=== PATIENT | female | born 1995 | race Caucasian/White ===

== ENCOUNTER 2021-10-18 01:58 | Inpatient (IN) ==
[~2021-10-18 01:58] MED LIST: Azithromycin 500 MG in 0.9 % Sodium Chloride 250 ML IVPB PRN; Famotidine 20 MG/2 ML VIAL IVP PRN; Metoclopramide 10 MG/2 ML VIAL IVP PRN; Naloxone 0.4 MG/ML INJ IVP PRN; Ondansetron 4 MG/2 ML VIAL IVP PRN
[2021-10-18] MEDS ORDERED: Ringers Solution, Lactated 1,000 ML IVC SCH (02:00)
[2021-10-18 02:53] LABS: Basophils # 0.1 K/mcL (0.0-0.2); Basophils % 0.7 %; Eosinophils # 0.1 K/mcL (0.0-0.6); Eosinophils % 0.9 %; Hematocrit 27.8 % (35.3-44.9); Hemoglobin 8.4 g/dL (11.5-15.4); Immature Granulocytes % 1.7 % (0-4); Lymphocytes # 1.5 K/mcL (0.6-4.6); Lymphocytes % 15.2 %; Mean Corpuscular HGB Conc 30.2 g/dL (31.6-35.5); Mean Corpuscular Hemoglobin 23.1 pg (28.0-33.3); Mean Corpuscular Volume 76.6 fL (83.0-100.0); Mean Platelet Volume 10.6 fL (9.4-12.4); Monocytes # 0.7 K/mcL (0.0-1.3); Monocytes % 6.9 %; Neutrophils # 7.3 K/mcL (1.6-8.9); Platelet Count 293 K/mcL (140-400); Red Blood Count 3.63 M/mcL (3.82-4.97); Red Cell Distribution Width 18.1 % (11.5-14.5); Segmented Neutrophils % 74.6 %; White Blood Count 9.8 K/mcL (4.3-11.1)
[2021-10-18 03:03] LABS: Amphetamine Screen,Urine Negative ng/mL (Cutoff=1000); Barbiturate Screen,Urine Negative ng/mL (Cutoff=200); Benzodiazepines Screen,Urine Negative ng/mL (Cutoff=200); Cannabinoid Screen,Urine Negative ng/mL (Cutoff = 50); Cocaine Screen,Urine Negative ng/mL (Cutoff= 300); Opiate Screen,Urine Negative ng/mL (Cutoff=300); Phencyclidine Screen,Urine Negative ng/mL (Cutoff=25)
[2021-10-18] MEDS ORDERED: *HR* Nalbuphine 10 MG/ML AMPUL ONE (04:54)
[2021-10-18] MEDS ORDERED: *HR* Nalbuphine 10 MG/ML AMPUL IV PRN (05:04)
[2021-10-18] MEDS ORDERED: EPHEDrine 50 MG/ML VIAL IVP PRN (08:43)
[2021-10-18] MEDS ORDERED: Epidural Premix (fent/bupiv) 110 ML EP SCH (08:45)
[2021-10-18] MEDS ORDERED: Oxytocin 30 UNIT/503 ML BAG IVC ONE (10:23)
[2021-10-18] MEDS ORDERED: Ibuprofen 600 MG TABLET PO ONE (11:53)
[2021-10-18] MEDS ORDERED: Oxytocin 30 UNIT/503 ML BAG IVC SCH (14:25)
[2021-10-18] MEDS ORDERED: Measles/Mumps/Rubella Vacc 0.5 ML VIAL SQ PRN (14:25)
[2021-10-18] MEDS ORDERED: Ondansetron ODT 4 MG TAB.RAPDIS SL PRN (14:25)
[2021-10-18] MEDS ORDERED: *HR* OxyCODONE Immed Rel 5 MG TABLET PO PRN (14:25)
[2021-10-18] MEDS ORDERED: Benzocaine/Menthol 56 GM AEROSOL SPRAY TP PRN (14:25)
[2021-10-18] MEDS ORDERED: Lanolin 7 G OINT...G. TP PRN (14:25)
[2021-10-18] MEDS: Ibuprofen 600 MG TABLET PO SCH ×2 (15:26→21:43)
[2021-10-18] MEDS: Acetaminophen 325 MG TABLET PO SCH ×2 (15:27→21:42)
[2021-10-19] MEDS: Acetaminophen 325 MG TABLET PO SCH (03:26)
[2021-10-19] MEDS: Ibuprofen 600 MG TABLET PO SCH (03:26)
[2021-10-19 03:51] LABS: Basophils % 0.2 %; Eosinophils % 0.2 %; Hematocrit 22.1 % (35.3-44.9); Immature Granulocytes % 1.9 % (0-4); Lymphocytes # 1.9 K/mcL (0.6-4.6); Lymphocytes % 12.5 %; Mean Corpuscular HGB Conc 29.9 g/dL (31.6-35.5); Mean Corpuscular Hemoglobin 23.1 pg (28.0-33.3); Mean Corpuscular Volume 77.3 fL (83.0-100.0); Mean Platelet Volume 10.4 fL (9.4-12.4); Monocytes # 0.8 K/mcL (0.0-1.3); Monocytes % 4.9 %; Neutrophils # 12.4 K/mcL (1.6-8.9); Platelet Count 255 K/mcL (140-400); Red Blood Count 2.86 M/mcL (3.82-4.97); Red Cell Distribution Width 18.1 % (11.5-14.5); Segmented Neutrophils % 80.3 %
[2021-10-19 03:52] LABS: Hemoglobin 6.6 g/dL (11.5-15.4); White Blood Count 15.4 K/mcL (4.3-11.1)
[2021-10-19] MEDS ORDERED: Ringers Solution, Lactated 1,000 ML ONE (07:49)
[2021-10-19] MEDS ORDERED: 0.9 % Sodium Chloride 500 ML ONE (08:30)
[2021-10-19 08:39] VITALS: O2SAT 98
[2021-10-19] MEDS ORDERED: Prenatal Vit/FA 1 EACH TABLET PO SCH (09:00)
[2021-10-19 11:38] VITALS: BP 114/75; PULSE 73; TEMP 98.1
== END 2021-10-19 15:39 | disposition home or self-care (01) | DRG 560 ==
LOC: 1NENULAB → 1NENUOBS 14:23
PROVIDERS: ADMIT Registered Nurse; ATTEND Registered Nurse